=== PATIENT | male | born 1950 | race Caucasian/White ===

== ENCOUNTER 2022-01-29 14:57 | Outpatient (CLI) | payer MEDICARE, BC, SELFPAY ==
--- OUTSIDE RECORDS SUMMARY | 2022-01-29 14:59 | XMS_ITS | Clinical Summary ---
:1950 Author Organization [facility] [place] [address] Care Team Providers Name Role Phone Scott Kumar MD Primary Care Provider [phone] Allergies Active Allergy Reactions Severity Noted Date Comments [place] Other - Describe In Comment Field 016 Allergy tested. Ragweed Other - Describe In Comment Field 016 Allergy tested. Medications Medication Sig Dispensed Refills Start Date End Date Status cholecalciferol (VITAMIN Take 1,000 units 0 Active D3) 1,000 unit tablet by mouth once daily. glucosamine-chondroitin, Take 1 Capsule 0 Active 500-400 mg, (COSAMIN DS by mouth once 500/400) 500-400 mg cap daily. MULTIVITAMIN ORAL Take by mouth. 0 Active sennosides-docusate Take 1 Tablet by 20 Tablet 0 11/20/2021 Active (SENOKOT S) (8.6-50 mg) mouth 2 times tabletIndications: daily if needed Achalasia for Constipation. Active Problems Problem Noted Date Achalasia 11/20/2021 FH: prostate cancer 03/18/2017 Lipid screening 03/18/2016 Screening for diabetes mellitus (DM) 03/18/2016 Lipid screening 04/21/2010 Overview: LDL Cholesterol 116 on 04/21/2010 Screening PSA (prostate specific antigen) 04/21/2010 Overview: Formatting of this note is dif ferent from the original. PSA TOTAL (SCREEN) (NG/ML) Date Value 04/21/2010 0.70 Environmental allergies 04/21/2010 Encounters Date Type Specialty Care Team Description 11/24/2021 Telephone Tae Johnson Surgical Follo wup (KALEB Moreno MD phone f/u) 11/23/2021 Patient Outreach Yadi Pimentel RN Primary R N Care Management; Linn lemus F/U ( CE: 29) 11/20/2021 Anesthesia Event Blade Araujo MD 11/20/2021 Surgery Tae Johnson ROBOTIC ASSIST ED RACHNA Moreno MD MYOTOMY, Bon fundoplication and hiatal hernia repair. 11/20/2021 - Hospital Encounter Tae Johnson Achalasi a (Primary Dx) 11/21/2021 MD Josh Discharge Summary - Tae Johnson MD - 11/21/2021 11:51 AM CDT HOSPITAL DISCHARGE SUMMARY Patient Name: Chace german Date of : 1950 Age : 71 y.o. [id number] Primary Physician: Scott Kumar MD Admission Date: 11/20/2021 Discharge Date: 11/21/2021 He will be discharged from [facility] to home. PRINCIPAL DISCHARGE DIAGNOSI S: Achalasia status post Heller myotomy and Bon fundoplication with hiatal hernia repair this admission Active Problems: Achalasia BRIEF HOSPITAL COURSE: This 71 y.o. male was admitted after he underwent a laparoscopic, robotic assisted Heller myotomy and Bon fundoplication for achalasia. At the time of the operation and he was not ed to have some of the large r hiatal hernia than we anticipated and we repaired this as well. Postoperatively he has had no problems. He feels like the liquids that he has had had passed through the eso phagus into the stomach. He has had appropriate amount of pain. No fevers or chills. His abdomen this morning is benign. The wounds are clean and dry. He is afebrile and with normal vitals. We will discharge him to [facility] today. He will be on a soft diet for a couple of weeks. We will reach out to them early next week to follow-up. If he has any difficulties before that time he will call us. We reviewed postoperative c martina. With the repair of the hiatal hernia have asked him not to lift more than 10 to 20 pounds for 8 weeks. Overall he agrees with the plan. PROCEDURES PERFORMED DURING HOSPITALIZATION: Robotic Heller myotomy and Bon fundoplication with hiatal hernia repair COMPLICATIONS IN HOSPITAL: N one PERTINENT FINDINGS/RESULTS A T DISCHARGE: BP 104/74 (Cuff Size: Adult Regular) Pulse 60 Temp 97.6 ??F (36.4 ??C) Resp 16 Wt 84.4 kg (186 lb) SpO2 92% BMI 25.23 kg/m?? No data found. None Latest Laboratory Results: Chem: No results for input(s): SOD IUM, POTASSIUM, CREATININE in the last 720 hours. WBC/Hgb: No results for input(s): WBC , HGB in the last 720 hours. INR: No results for input(s): INR in the last 720 hours. IMPORTANT PENDING TEST RESUL TS: Lab results that may not be resulted at time of discharge: (From admission through now) None CONDITION AT DISCHARGE: Impr oving DISCHARGE ORDERS Your Home Medicines START taking these medicines Instructions Senexon-S (8.6-50 mg) tablet For diagnoses: Achalasia Generic drug: sennosides-doc usate Take 1 Tablet by mouth 2 ti mes daily if needed for Constipation. CONTINUE taking these medici johnathon Instructions cholecalciferol 1,000 unit t ablet Commonly known as: VITAMIN D 3 Take 1,000 units by mouth o nce daily. glucosamine-chondroitin (500 -400 mg) 500-400 mg Cap Commonly known as: COSAMIN D S 500/400 Take 1 Capsule by mouth onc e daily. MULTIVITAMIN ORAL Take by mouth. Where to get your medicines These medications were sent to [facility] [address] [address] Hours: Open 24 Hours ?? Senexon-S (8.6-50 mg) tab let After Discharge Orders and I nstructions Activity - up as tolerated: - Get regular activity and try to walk for a total of 30 minutes per day. - Start by walking for 5 to 10 minutes at one time and slowly build to walking for 30 minutes one time. - Walk often; for 10 minutes four to five times a day. - Increase the amount of silver e you walk as you can tolerate. - Rest is also an important part of healing. - Slowly return to your regu lar level of activity. - Save your energy by spread ing out activities that make you tired. - Rest as needed. - Avoid strenuous exercise f or 4 weeks Additional information abou t your medicines: -Stop taking narcotic pain medications as soon as possible -Transition to non-narcotic pain medications (i.e., acetaminophen or ibuprofen) as needed Bowel Care If no bowel movement within 2 days after surgery: ?? Take 1 dose of over the c ounter Milk of Magnesia in the morning. ?? If still no bowel movemen t, take a second dose of over the counter Milk of Magnesia in the evening. ?? If no bowel movement by t he fourth day after surgery, contact your surgeon's office. Discharge instructions afte r receiving anesthesia or sedation: * You have received medicin e (anesthesia, sedation or both) that made you sleepy. This will affect your ability to think clearly and make good decisions. * For your safety, you will need a responsible adult to drive you home and to stay with you for 24 hours. * For 24 hours: - Do not drive or use any ma chinery. - Do not make important deci sions. - Do not drink alcohol. (It is also important to not drink alcohol as long as you are taking prescription pain medicine.) Follow up Phone Call with [facility] A nurse (Deepika) from the [facility] will call you in approximately 1 week for phone follow up. If there are any issues that cannot be resolved over the phone, we will schedule you an appointment at that time. If you have questions or con cerns please call us at [phone]. When to follow up: Other (C omment) Other (Comment): as stated When is patient being disch arged?: Tomorrow For your safety: No driving for 8 hours afte r taking any narcotic pain medications. Ice: Ice to incision/affected ar ea 30 minutes every 4 hours as needed. Other activities: No lifting pushing or pulli ng more than 10 lbs for 8 weeks Patient Instruction post bl adder scan Same Day Discharge patients If unable to urinate in 6-8 hours after discharge, return to Emergency Room with your discharge instructions. What you may eat and drink after your hospital stay: Start with full liquid diet : shakes, protein drinks, soups, yogurt, pudding, etc. May advance diet to a mechan ical soft diet in 2-3 days. Soft diet includes anything soft or foods you can cut with a fork - eg. Fish, shrimp, pasta, egg, tofu, hamburger meat, cooked vegetables. Once you are tolerating soft diet for 14 days, you may increase your diet to a regular diet - avoid hard bread, raw vegetables for 1 month until you can confidently eat other regular diet foods. Always drinking a couple sip s of water at room temperature before you start eating. Take small bites, chew well before swallowing. Call our surgery office at if you have any concerns or questions regarding your diet/ surgery recovery. When should you be concerne d? Call health care provider f or: - temperature greater than 1 00.4 F - nausea and vomiting that w ill not stop - severe uncontrolled pain - redness, tenderness, or si gns of infection (pain, swelling, redness, odor or green/yellow discharge around the site) - difficulty breathing - headache - eye problems - hives - dizziness or light-headedn ess that will not stop - extreme fatigue (can't get out of bed) - any other questions or con cerns you may have after discharge - in an emergency, call 911 or go to an Emergency Department at a nearby hospital [facility] You were in the hospital fo r Heller myotomy, Bon Fundoplication and Hiatal hernia repair. Wound care - with dressings Keep wound clean and dry fo r 48 hours after surgery, then remove the Band Aides and shower normally. Remove steri-strips in 10 days. You may shower and pat dry a fter the dressings are removed. Do not rub or scrub the wound. Do not submerge the wound under water (swimming pool, bathtub, etc) for 2 weeks after surgery or until the wound appears will healed and scabs have fallen off. If the wound gets red, hot, swollen or develops foul drainage/pus, please notify your surgeon. These are signs of a wound infection. FOLLOW-UP: He should see Pet er Blake Kumar MD in 5 days Specialty follow-up: next we ek by phone to begin more as needed Total time spent for dischar ge on date of discharge: 10 minutes I saw the patient on the kirsten e of discharge. 11/20/2021 Travel 11/18/2021 Travel from Last 3 Months Immunizations Name Administration Dates Next Due Influenza, High-dose Inactivated 02/14/2016 Influenza, IIV3 (Age >=3 years) 03/27/2013, 01/30/2011 Influenza, IIV4 02/13/2014 Pneumococcal conj 13-Valent (Prevnar 13) 03/17/2016 Tdap 04/21/2010 Zoster (Zostavax-ZVL, live) 04/21/2011 Family History Medical History Relation Name Comments Cancer-prostate Father frrom it 80 yo Other Mother htn Relation Name Status Comments Father Mother Alive Social History Tobacco Use Types Packs/Day Years Used Date Never Smoker Smokeless Tobacco: Never Used Alcohol Use Standard Drinks/Week Comments Yes 0 (1 standard drink = 0.6 oz pure alcoho l) Sex Assigned at Date Recorded Not on file Obstetrics History Last Filed Vital Signs Vital Sign Reading Time Taken Comments Blood Pressure 104/74 11/21/2021 8:24 AM CDT Pulse 60 11/21/2021 8:24 AM CDT Temperature 36.4 ??C (97.6 ??F) 11/21/2021 8:24 AM CDT Respiratory Rate 16 11/21/2021 8:24 AM CDT Oxygen Saturation 92% 11/21/2021 8:24 AM CDT Inhaled Oxygen Concentration - - Weight 84.4 kg (186 lb) 11/18/2021 10:35 AM CDT Height 182.9 cm (6') 09/16/2021 1:31 PM CDT Body Mass Index 25.23 09/16/2021 1:31 PM CDT Plan of Treatment Health Maintenance Due Date Last Done Comments Hepatitis C screening for age 0901/11/1968 18-79 Zoster (shingles) series for age 0206/16/2011 04/21/2011 50+ (2 of 3) Pneumococcal series for age 65+ (2 03/17/2017 03/17/2016 - PPSV23 or PCV20) Medicare Wellness for age 65+ 03/18/2018 03/18/2017 Depression screening for age 12+ 11/25/2019 11/24/2018, , 03/18/2017, Additional history exists Tetanus booster 04/21/2020 04/21/2010 Colonoscopy through age 75 06/11/2020 06/11/2010, 1, 06/11/2010 COVID-19 vaccine series (2 - 04/04/2021 03/07/2021 Moderna series) Influenza for age 65+ 12/31/2021 02/14/2016, 02/13/2014, 03/27/2013, Additional history exists Lipids for age 45-75 03/18/2022 03/18/2017, 03/20/2016, 04/22/2014, Additional history exists BMI (ht and wt on same day) for 09/16/2022 09/16/2021, 10/31, age 18+ 03/17/2016 Tdap Completed 04/21/2010 Procedures Procedure Name Priority Date/Time Associated Comments Diagnosis PLATELET COUNT Early AM 11/21/2021 8:29 AM Results for this CDT procedure are i n the results section. ENDOTRACHEAL TUBE Routine 11/20/2021 11:23 Result s for this AM CDT procedure are i n the results section. ENDOTRACHEAL TUBE Routine 11/20/2021 11:23 Result s for this AM CDT procedure are i n the results section. ROBOTIC ASSISTED Tier 3 11/20/2021 10:33 Achalasia PARAESOPHAGEAL HIATAL AM CDT HERNIORRHAPHY XI Special Needs WT 195 ROBOTIC ASSISTED HELLER MYOTOMY XI Tier 3 11/20/2021 10:33 AM CDT Achalasia Special Needs WT 195 SCAN-CARDIAC STRIP 11/20/2021 12:00 AM CDT Results for this procedure are in the resu lts section. SCAN CORRESP-LABORATORY 11/17/2021 12:00 AM CDT Results for this procedure RESULTS are in the resu lts section. SCAN CORRESP-EKG RESULTS 11/10/2021 8:41 AM CDT Results for this procedure are in the resu lts section. from Last 3 Months Results PLATELET COUNT (11/21/2021 8:29 AM CDT) athologist Signature PLATELET COUNT 245 140 - 440 11/21/2021 [employer] thou/cu mm 9:00 AM CDT LABORATORY-CENT RAL LABORATORY MPV 9.6 6.5 - 11.0 11/21/2021 [employer] fL 9:00 AM CDT LABORATORY-CENT RAL LABORATORY Specimen Anatomical Collection Method / Collection Time Recei shantanu Time (Source) Location / Volume Laterality Blood BLOOD SPECIMEN / Venipuncture / 11/21/2021 8:29 2021 8:49 Unknown Unknown AM CDT AM CDT Tae Johnson MD HEMATOLOGY Performing Organization Address City/State/ZIP Code Phon e Number [facility] [address] [place] [address] LABORATORY-CENTRAL 2000 LABORATORY HCHG TUBE PR1, HCHG STYLET PR1 (11/20/2021 11:23 AM CDT) Narrative Kyung Wise CRNA - 11/20/2021 11:23 AM CDT Kyung Wise CRNA ? 11/20/2021 11:23 AM Procedure: ETT Patient location during procedure: OR ETT Properties Mask Ventilation: not attempted Final Technique: cricoid pressure, rapid sequence induction and direct laryngoscopy Type: straight Location: oral Cuffed: yes Tube Size: 7.5 mm Stylet: yes Laryngoscope Blade: Figueroa Blade Size: 3 Cormack-Lehane Grade View: 1 Insertion Attempts: 1 Placement Verification: auscultation, en d tidal CO2 and symmetrical chest wall movement Assessment: pharynx clear, atraumatic an d dentition unchanged Secured at: 22 Measured From: lips Difficulty: 0 (not difficult) Electronically signed by Kyung Wise CRNA ? Blade Araujo MD ANESTHESIA PX NOTE ORDERABLE S SCAN-CARDIAC STRIP (11/20/2021 12:00 AM CDT) Narrative 11/20/2021 12:00 AM CDT This result has an attachment that is no t available. Ordered by an unspecified provider. Other Clinical Staff OTHER SCAN CORRESP-LABORATORY RESULTS (11/17/2021 12:00 AM CDT) Narrative 11/17/2021 12:00 AM CDT This result has an attachment that is no t available. Ordered by an unspecified provider. Other Clinical Staff OTHER SCAN CORRESP-EKG RESULTS (11/10/2021 8:41 AM CDT) Narrative 11/10/2021 8:41 AM CDT This result has an attachment that is no t available. Ordered by an unspecified provider. Other Clinical Staff OTHER from Last 3 Months Insurance Payer Benefit Plan / Subscriber ID Effective Dates Phone Addre ss Type Group MEDICARE PART A MEDICARE PART A [id number] 2016-Presen ATTN: CLAIMS - HB USE ONLY HB ONLY t [address] [place] [address] MEDICARE PART B MEDICARE PART B [id number] 2016-Presen ATTN: CLAIMS - HB USE ONLY HB ONLY t [address] [place] [address] MEDICARE - PB MEDICARE PB [id number] 2018-Presen ATTN : CLAIMS USE ONLY ONLY t [address] [place] [address] BLUE CROSS BLUE CROSS OF [id number] 2018-Presen [address] [place] [address] [facility] ATTN [facility] (Home) [employer] [place] [id number] [phone] [address] (Work) [place] [address] Advance Directives Latest Code Status on File Code Status Date Activated Date Inactivated Comments Full Code 11/21/2021 7:40 AM 11/21/2021 2:32 PM Code Status Discussion: Reviewed Preferences Full Code 11/20/2021 9:35 AM 11/21/2021 7:40 AM Code Status Discussion: Unable to Assess Preferences, Provid er to review later Care Teams Aquarist Relationship Specialty Start Date End Date Scott Kumar MD PCP - General Family Practice 03/17/[address] [place] [address]
--- NOTE | 2022-01-29 15:00 | CRLHL7_ITS ---
For Patients: As a result of the Century Cures Act, medical imaging exams and procedure reports are released immediately into your electronic medical record. You may view this report before your referring provider. If you have questions, please contact your health care provider. INDICATION: Left testicular pain COMPARISON: none TECHNIQUE: Spicer scale imaging was performed of the scrotum. In addition color Doppler and spectral Doppler analysis was performed of the testes. FINDINGS: The testes demonstrate normal arterial and venous blood flow on color Doppler and spectral Doppler analysis. The testes have uniform echogenicity with no evidence of a suspicious mass or area of inflammation. The right testis measures 3.9 x 2.0 x 2.8 cm in size and the left testis measures 3.8 x 2.3 x 2.4 cm. Unremarkable epididymis. Left varicocele. IMPRESSION: Left varicocele. Normal testicles. No testicular torsion. Dictated by Ruben Carvajal MD @ 01/29/2022 4:10:21 PM (Electronically Signed)
== END 2022-01-29 14:58 | disposition home or self-care (01) ==
PROVIDERS: PCP Internal Medicine; Visit Provider Internal Medicine
DX: N50.812 Left testicular pain (principal); I86.1 Scrotal varices
CPT/HCPCS: 76870; 93976

== ENCOUNTER 2023-01-13 08:40 | Outpatient (CLI) | payer MEDICARE, BC, SELFPAY | END 2023-01-13 08:41 | disposition home or self-care (01) | LOC: NFLDREF 08:41 | PROVIDERS: PCP Internal Medicine; Visit Provider Internal Medicine | DX: Z00.00 Encounter for general adult medical examination without abnormal findings (principal); N52.9 Male erectile dysfunction, unspecified; Z80.42 Family history of malignant neoplasm of prostate | CPT/HCPCS: 84153 ==

== ENCOUNTER 2024-01-16 13:19 | Outpatient (CLI) | payer MEDICARE, BC, SELFPAY ==
--- OUTSIDE RECORDS SUMMARY | 2024-01-16 13:31 | XMS_ITS | Clinical Summary ---
Author Organization [employer] [facility] Address [place], [place] [address] Care Team Providers Care Supervisor [employer] Name Role Phone Scott Kumar MD Primary Care Provider [phone] Allergies Active Allergy Reactions Criticality Noted Date Comments [place] Other - Describe In Comment Field 03/17/2016 Allergy tested. Ragweed Other - Describe In Comment Field 03/17/2016 Allergy tested. Medications Medication Sig Dispensed Refills Start Date End Date Status cholecalciferol (VITAMIN D3) 1,000 unit tablet Take 1,000 units by mouth once daily. Active glucosamine-chondroit in, 500-400 mg, (COSAMIN DS 500/400) 500-400 mg cap Take 1 Capsule by mouth once daily. Active MULTIVITAMIN ORAL Take by mouth. Act aimee sennosides-docusate (SENOKOT S) (8.6-50 mg) tabletIndications:Ach alasia Take 1 Tablet by mouth 2 times daily if needed for Constipation. 20 Tablet 11/20/2021 Active Active Problems Problem Noted Date Diagnosed Date Achalasia 11/20/2021 FH: prostate cancer 03/18/2017 Lipid screening 03/18/2016 Screening for diabetes mellitus (DM) 03/18/2016 Lipid screening 04/21/2010 Overview (04/23/2010): LDL Cholesterol 116 on 04/21/2010 Screening PSA (prostate specific antigen) 2009 Overview (04/23/2010): PSA TOTAL (SCREEN) (NG/ML) Date Value 04/21/2010 0.70 Environmental allergies 04/21/2010 Immunizations Name Administration Dates Next Due Influenza, High-dose Inactivated 02/14/2016 Influenza, IIV3 (Age >=3 years) 03/27/2013,01/30 Influenza, IIV4 02/13/2014 Pneumococcal conj 13-Valent (Prevnar 13) 016 Tdap 04/21/2010 Zoster (Zostavax-ZVL, live) 04/21/2011 Family History Medical History Relation Name Comments Cancer-prostate Father frrom i t 80 yo Other Mother htn Relation Name Status Comments Father Mother Alive Social History Tobacco Use Types Packs/Day Years Used Date Smoking Tobacco: Never Smokeless Tobacco: Never Alcohol Use Standard Drinks/Week Comments Yes 0 (1 standard drink = 0.6 oz pur e alcohol) PHQ-2 Answer Date Recorded PHQ-2 Score 0 11/24/2018 Social Connections Answer Date Recorded Frequency of Communication with Friends and Fami ly Not on file 08/09/2022 Sex and Gender Information Value Date Recorded Sex Assigned at Not on file Gender Identity Not on file Sexual Orientation Not on file Obstetrics History Last Filed Vital Signs Vital Sign Reading Time Taken Comments Blood Pressure 104/74 11/21/2021 8:24 AM CDT Pulse 60 11/21/2021 8:24 AM CDT Temperature 36.4 ??C (97.6 ??F) 11/21/2021 8:24 AM CD T Respiratory Rate 16 11/21/2021 8:24 AM CDT Oxygen Saturation 92% 11/21/2021 8:24 AM CDT Inhaled Oxygen Concentration - - Weight 84.4 kg (186 lb) 11/18/2021 10:35 AM CDT Height 182.9 cm (6') 09/16/2021 1:31 PM CDT Body Mass Index 25.23 09/16/2021 1:31 PM CDT Plan of Treatment Health Maintenance Due Date Last Done Comments Hepatitis C screening for ag e 18-79 1969 Zoster (shingles) series for age 50+ (2 of 3) 06/16/2011 04/21/2011 Pneumococcal series for age 65+ (2 of 2 - PPSV23 or PCV20) 03/17/2017 03/17/2016 Medicare Wellness for age 65+ 03/19/2018 03/18/2017 Depression screening for age 12+ 11/25/2019 11/24/2018, 03/18/2017, 03/18/2017, Additional history exists Tetanus booster 04/21/2020 04/21/2010 Colonoscopy through age 75 06/11/202006/11, 06/11/2010, 06/11/2010 Lipids for age 45-75 03/18/2022 03/18/2017, 03/20/2016, 04/22/2014, Additional history exists BMI (ht and wt on same day) for age 18+ 09/16/2022 09/16/2021, 11/24/2018, 03/17/2016 COVID-19 vaccine series ( season) 2024 03/07/2021 Influenza for age 65+ 01/01/2024 02/14/2016 , 02/13/2014, 03/27/2013, Additional history exists Tdap Completed 04/21/2010 Procedures Procedure Name Priority Date/Time Associated Diagnosis Comments LIPID PANEL W REFLEX MEASURED LDL Routine 03/18/2017 12:05 PM HEALTH EDUCATION AIDE Lipid screening COLONOSCOPY SCREENING Routine 06/11/2010 Screen for colon cancer from Last 3 Months or Most Recently Relevant to Health Maintenance Results * (ABNORMAL) LIPID PANEL W REFLEX MEASURED LDL (03/18/2017 12:05 PM HEALTH EDUCATION AIDE) CHOLESTEROL,TOTAL 210(H) 100 - 199 mg/dL 03/18/2017 5:07 PM [facility] TRIGLYCERIDES 100 <150 mg/dL 03/18/2017 5:07 PM [facility] HDL CHOLESTEROL 56 >40 mg/dL 7 5:07 PM [facility] NON-HDL CHOLESTEROL 154(H) <145 mg/dl 03/18/2017 5:07 PM [facility] CHOL/HDL RATIO 3.75 <4.50 03/18/2017 5:07 PM [facility] LDL CHOLESTEROL 134(H) <=130 mg/dL 03/18/2017 5:07 PM [facility] PROVIDER ORDERED STATUS FASTING 03/18/2017 5:07 PM [facility] Blood BLOOD SPECIMEN / Unknown Butterfly / Unknown 03/18/2017 12:05 PM HEALTH EDUCATION AIDE 03/18/2017 12:05 PM HEALTH EDUCATION AIDE Scott Kumar MD CHEMISTRY [facility] [address] [place] [address] * COLONOSCOPY SCREENING (06/11/2010) Ever Scott MD GI PROCEDURE ORD from Last 3 Months or Most Recently Relevant to Health Maintenance Advance Directives * Full Code (Latest Code Status on File) Date Activated Date Inactivated Comments 11/21/2021 7:40 AM 11/21/2021 2:32 PM Question Answer Comments Code Status Discussion: Reviewed Preferences * Full Code Date Activated Date Inactivated Comments 11/20/2021 9:35 AM 11/21/2021 7:40 AM Question Answer Comments Code Status Discussion: Unable to Assess Preferences, Provider to review later Care Teams Supervisor [employer] Relationship Specialty Start Date End Date Scott Kumar MD [address] [place] [address] PCP - General Family Practice 03/17/16
== END 2024-01-16 13:20 | disposition home or self-care (01) ==
LOC: NFLDREF 13:27
PROVIDERS: PCP Internal Medicine; Visit Provider Internal Medicine
DX: Z00.00 Encounter for general adult medical examination without abnormal findings (principal); Z80.42 Family history of malignant neoplasm of prostate
CPT/HCPCS: G0103

== ENCOUNTER 2025-01-14 08:10 | Outpatient (CLI) | payer MEDICARE, BC, SELFPAY | END 2025-01-14 08:11 | disposition home or self-care (01) | LOC: NFLDREF 01-18 03:44 | PROVIDERS: PCP Internal Medicine; Referring Provider Internal Medicine; Visit Provider Internal Medicine | DX: Z12.5 Encounter for screening for malignant neoplasm of prostate (principal); Z80.42 Family history of malignant neoplasm of prostate | CPT/HCPCS: G0103 ==